=== PATIENT | female | born 1945 | race Asian ===

== ENCOUNTER 2017-07-24 13:23 | Emergency (ER) | payer MEDICARE, MEDICAID ==
[~2017-07-24] VITALS: Ht 149.9 cm; Wt 52.0 kg
[2017-07-24 14:26] LABS: HEMATOCRIT 43.4 % (34.6-47.8); HEMOGLOBIN 14.6 g/dL (11.7-16.4)
[2017-07-24] MEDS ORDERED: SODIUM CHLORIDE FLUSH 10ML SYR IVF ONE (14:30)
[2017-07-24 14:38] LABS: BLOOD UREA NITROGEN 26 mg/dL (7-18)
[2017-07-24 14:54] LABS: IS PT STATUS REG ER OR PRE ER? YES
[2017-07-24] MEDS ORDERED: ENALAPRILAT 1.25 MG/ML, 2ML ONE (14:56)
[2017-07-24] MEDS ORDERED: LABETALOL 5MG/ML, 20ML ONE (14:56)
[2017-07-24] MEDS ORDERED: LABETALOL 5MG/ML, 20ML IVPush ONE (15:00)
[2017-07-24] MEDS ORDERED: ENALAPRILAT 1.25 MG/ML, 2ML IV ONE (15:00)
[2017-07-24 16:37] VITALS: BP 166/68
== END 2017-07-24 17:10 | disposition home or self-care (01) ==
LOC: ED 16:30
DX: I10 Essential (primary) hypertension (principal); Z86.73 Personal history of transient ischemic attack (TIA), and cerebral infarction without residual deficits
CPT/HCPCS: 36415; 71010; 80048; 82040; 83880; 84484; 85025; 93005; 96374; 96375

== ENCOUNTER 2018-02-18 19:55 | Emergency (ER) | payer MEDICARE, MEDICAID ==
[~2018-02-18] VITALS: Ht 144.8 cm; Wt 51.1 kg
[2018-02-18] MEDS ORDERED: HYDR12.53 PO (20:31)
[2018-02-18 20:57] LABS: BASOPHILS # (AUTO) 0.08 x10^3/uL (0-0.1); BASOPHILS % (AUTO) 1 % (0-1); EOSINOPHILS # (AUTO) 0.34 x10^3/uL (0-0.4); EOSINOPHILS % (AUTO) 4 % (1-7); LYMPHOCYTES # (AUTO) 3.96 x10^3/uL (1-3.4); LYMPHOCYTES % (AUTO) 41 % (22-44); MD NO; MEAN CORPUSCULAR HEMOGLOBIN 29.3 pg (27.0-34.8); MEAN CORPUSCULAR HGB CONC 33.6 g/dL (32.4-35.8); MEAN PLATELET VOLUME 8.7 fL (7.4-10.4); MONOCYTES # (AUTO) 0.61 x10^3/uL (0.2-0.8); MONOCYTES % (AUTO) 6 % (2-9); NEUTROPHILS # (AUTO) 4.64 x10^3/uL (1.8-6.8); NEUTROPHILS % (AUTO) 48 % (42-75); PLATELET COUNT 284 x10^3/uL (130-400); RED BLOOD COUNT 4.43 x10^6/uL (3.82-5.3); RED CELL DISTRIBUTION WIDTH 13.4 % (9.6-15.2)
[2018-02-18 21:01] LABS: ALANINE AMINOTRANSFERASE 26 U/L (12-78); ALBUMIN 3.5 g/dL (3.4-5.0); ANION GAP 8 mmol/L (5-15); CALCIUM 9.5 mg/dL (8.5-10.1); CHLORIDE 103 mmol/L (98-107); CREATININE 1.03 mg/dL (0.55-1.02)
[2018-02-18 21:03] LABS: ALKALINE PHOSPHATASE 90 U/L (45-117); BILIRUBIN,TOTAL 0.3 mg/dL (0.2-1.0); TOTAL PROTEIN 8.4 g/dL (6.4-8.2)
[2018-02-18] MEDS ORDERED: LOSARTAN 50MG TABLET PO ONE (22:00)
[2018-02-18 22:28] VITALS: BP 235/115
== END 2018-02-18 22:30 | disposition home or self-care (01) ==
LOC: ED 22:00
DX: S93.491A Sprain of other ligament of right ankle, initial encounter (principal); L30.9 Dermatitis, unspecified; I10 Essential (primary) hypertension; X58.XXXA Exposure to other specified factors, initial encounter; Y93.89 Activity, other specified; Y92.89 Other specified places as the place of occurrence of the external cause; Y99.8 Other external cause status
CPT/HCPCS: 36415; 80053; 85025; 93005; 99285

== ENCOUNTER 2018-10-20 16:06 | Emergency (ER) | payer MEDICARE, MEDICAID ==
[~2018-10-20] VITALS: Ht 144.8 cm; Wt 50.8 kg
[~2018-10-20 16:06] MED LIST: HYDR12.517 PO
--- NOTE | 2018-10-20 16:32 | NUR ---
FROM LOBBY TO ROOM AT THIS TIME
--- NOTE | 2018-10-20 16:37 | NUR ---
FIRST CONTACT WITH PT. Pt states, "I am here because of skin rashes that I have had a week or a month. I have a red spon on my eyes (left eye) it is always itching me. I used an an anti-itch cream from the [email or web address] and it didn't help. Every time I walk I am having trouble breathing." NADN. PT DENIES CP. PT STATES SHE HAS "TROUBLE BREATHING WHEN I WALK". PT HAS UNLABORED RESPIRATIONS EQUAL BILATERALLY. ALL SAFETY MEASURES IN PLACE. PT CONNECTED TO ALL MONITORS. CALL LIGHT WITHIN REACH OF PT.
[2018-10-20 17:11] LABS: BASOPHILS # (AUTO) 0.07 x10^3/uL (0-0.1); BASOPHILS % (AUTO) 1 % (0-1); EOSINOPHILS # (AUTO) 0.42 x10^3/uL (0-0.4); EOSINOPHILS % (AUTO) 6 % (1-7); LYMPHOCYTES % (AUTO) 32 % (22-44); MD NO; MEAN CORPUSCULAR HEMOGLOBIN 30.7 pg (27.0-34.8); MEAN CORPUSCULAR HGB CONC 34.5 g/dL (32.4-35.8); MEAN PLATELET VOLUME 9.3 fL (7.4-10.4); MONOCYTES # (AUTO) 0.41 x10^3/uL (0.2-0.8); MONOCYTES % (AUTO) 6 % (2-9); NEUTROPHILS # (AUTO) 4.17 x10^3/uL (1.8-6.8); NEUTROPHILS % (AUTO) 56 % (42-75); PLATELET COUNT 213 x10^3/uL (130-400); RED BLOOD COUNT 4.55 x10^6/uL (3.82-5.3); RED CELL DISTRIBUTION WIDTH 13.3 % (9.6-15.2)
[2018-10-20 17:23] LABS: ALBUMIN 3.8 g/dL (3.4-5.0); ANION GAP 8 mmol/L (5-15); CALCIUM 8.7 mg/dL (8.5-10.1); CHLORIDE 105 mmol/L (98-107)
[2018-10-20 17:28] LABS: ALANINE AMINOTRANSFERASE 25 U/L (12-78); ALKALINE PHOSPHATASE 76 U/L (45-117); BILIRUBIN,TOTAL 0.5 mg/dL (0.2-1.0); CREATININE 1.92 mg/dL (0.55-1.02); TOTAL PROTEIN 7.9 g/dL (6.4-8.2); TROPONIN I < 0.015 ng/mL (0.000-0.045)
--- NOTE | 2018-10-20 17:31 | NUR ---
ED MD AWARE OF PT'S BLOOD PRESSURES. PT IS ASYMPTOMATIC.
[2018-10-20] MEDS ORDERED: LISINOPRIL 10 MG TABLET PO ONE (18:00)
[2018-10-20] MEDS ORDERED: LISINOPRIL 10 MG TABLET ONE (18:16)
--- NOTE | 2018-10-20 18:21 | NUR ---
PROVIDED PT MEDICATION PER EMAR.
[2018-10-20 19:01] VITALS: BP 181/100
--- NOTE | 2018-10-20 19:01 | NUR ---
PT DISCHARGED AND LEFT WITH ALL PERSONAL BELONGINGS.
== END 2018-10-20 19:06 | disposition home or self-care (01) ==
LOC: ED 18:50
DX: B35.4 Tinea corporis (principal); I10 Essential (primary) hypertension; R06.00 Dyspnea, unspecified
CPT/HCPCS: 36415; 71045; 80053; 83880; 84484; 85025; 93005; 99284

== ENCOUNTER 2018-11-02 14:26 | Emergency (ER) | payer MEDICARE, MEDICAID ==
[~2018-11-02] VITALS: Ht 152.4 cm; Wt 53.6 kg
[2018-11-02 14:35] VITALS: BP 218/102
[2018-11-02 15:22] LABS: ALBUMIN 3.6 g/dL (3.4-5.0); ANION GAP 8 mmol/L (5-15); CALCIUM 8.9 mg/dL (8.5-10.1); CHLORIDE 106 mmol/L (98-107)
[2018-11-02 15:25] LABS: ALANINE AMINOTRANSFERASE 23 U/L (12-78); ALKALINE PHOSPHATASE 73 U/L (45-117); BILIRUBIN,TOTAL 0.5 mg/dL (0.2-1.0); CREATININE 1.22 mg/dL (0.55-1.02); TOTAL PROTEIN 7.6 g/dL (6.4-8.2)
[2018-11-02] MEDS ORDERED: FLUCONAZOLE 100 MG TABLET ONE (16:00)
[2018-11-02] MEDS ORDERED: FLUCONAZOLE 100 MG TABLET PO ONE (16:00)
== END 2018-11-02 16:11 | disposition home or self-care (01) ==
LOC: ED 15:35
DX: L25.9 Unspecified contact dermatitis, unspecified cause (principal); I10 Essential (primary) hypertension; Z86.73 Personal history of transient ischemic attack (TIA), and cerebral infarction without residual deficits
CPT/HCPCS: 36415; 80053; 99283; Q0177

== ENCOUNTER 2019-12-11 16:48 | Inpatient (IN) | payer MEDICARE, MEDICAID ==
[~2019-12-11] VITALS: Ht 149.9 cm; Wt 48.0 kg
[2019-12-11] MEDS ORDERED: ENALAPRILAT 1.25 MG/ML, 2ML IV ONE (18:00)
[2019-12-11] MEDS ORDERED: ENALAPRILAT 1.25 MG/ML, 1ML ONE (18:12)
--- NOTE | 2019-12-11 18:24 | NUR ---
PT MEDICATED PER MAR
[2019-12-11 18:27] LABS: BASOPHILS # (AUTO) 0.06 x10^3/uL (0-0.1); BASOPHILS % (AUTO) 1 % (0-1); EOSINOPHILS # (AUTO) 0.18 x10^3/uL (0-0.4); EOSINOPHILS % (AUTO) 2 % (1-7); LYMPHOCYTES # (AUTO) 2.91 x10^3/uL (1-3.4); LYMPHOCYTES % (AUTO) 30 % (22-44); MD NO; MEAN CORPUSCULAR HEMOGLOBIN 29.7 pg (27.0-34.8); MEAN CORPUSCULAR VOLUME 90.1 fL (80-100); MEAN PLATELET VOLUME 8.4 fL (7.4-10.4); MONOCYTES # (AUTO) 0.48 x10^3/uL (0.2-0.8); MONOCYTES % (AUTO) 5 % (2-9); NEUTROPHILS # (AUTO) 6.08 x10^3/uL (1.8-6.8); NEUTROPHILS % (AUTO) 63 % (42-75); PLATELET COUNT 225 x10^3/uL (130-400); RED BLOOD COUNT 4.41 x10^6/uL (3.82-5.3); RED CELL DISTRIBUTION WIDTH 13.3 % (9.6-15.2)
[2019-12-11 18:36] LABS: ALBUMIN 3.8 g/dL (3.4-5.0); ANION GAP 6 mmol/L (5-15); CALCIUM 8.9 mg/dL (8.5-10.1); CHLORIDE 105 mmol/L (98-107)
[2019-12-11 18:41] LABS: CREATININE 0.95 mg/dL (0.55-1.02); TROPONIN I < 0.015 ng/mL (0.000-0.045)
[2019-12-11] MEDS ORDERED: hydrALAzine 20 MG/ML, 1ML ONE (19:11)
--- NOTE | 2019-12-11 19:17 | NUR ---
PT CAME IN WITH HIGH BP. 2 EKG PEFORMED. PT IS NONCOMPLIENT WITH BP MEDS. 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 BLANKET AND SOCKS PROVIDED. PT MEDICATED PER MAR
--- NOTE | 2019-12-11 19:28 | NUR ---
PT RESTING IN [facility]. AWAITING US RESULTS. NO NEEDS AT THIS TIME.
[2019-12-11] MEDS ORDERED: hydrALAzine 20 MG/ML, 1ML IV ONE (19:30)
[2019-12-11] MEDS ORDERED: LORazepam 1MG TABLET ONE (19:55)
[2019-12-11] MEDS ORDERED: LORazepam 1MG TABLET PO ONE (20:00)
--- NOTE | 2019-12-11 20:30 | NUR ---
LATE ENTRY. HOSPITALIST BEDSIDE.
--- NOTE | 2019-12-11 21:06 | NUR ---
JEMAL DANGELO PROVIDED FROM [employer]
[2019-12-11 21:57] VITALS: BP 163/72
[2019-12-11] MEDS ORDERED: ACETAMINOPHEN 325 MG TABLET PO PRN (22:00)
[2019-12-11] MEDS ORDERED: LORazepam 1MG TABLET PO PRN (22:00)
[2019-12-11] MEDS ORDERED: LABETALOL 5MG/ML, 20ML IVPush PRN (22:00)
[2019-12-11] MEDS ORDERED: ONDANSETRON 2MG/ML, 2ML IVPush PRN (22:00)
[2019-12-11] MEDS ORDERED: PROMETHAZINE 25 MG/ML, 1ML IM PRN (22:00)
[2019-12-11] MEDS: LISINOPRIL 5 MG TABLET PO SCH (22:19)
[2019-12-12 01:33] VITALS: BP 151/71
[2019-12-12 06:32] VITALS: BP 166/66
[2019-12-12 07:14] LABS: BASOPHILS # (AUTO) 0.01 x10^3/uL (0-0.1); BASOPHILS % (AUTO) 0 % (0-1); EOSINOPHILS # (AUTO) 0.04 x10^3/uL (0-0.4); EOSINOPHILS % (AUTO) 0 % (1-7); LYMPHOCYTES # (AUTO) 1.88 x10^3/uL (1-3.4); LYMPHOCYTES % (AUTO) 18 % (22-44); MD NO; MEAN CORPUSCULAR HEMOGLOBIN 30.4 pg (27.0-34.8); MEAN CORPUSCULAR HGB CONC 33.2 g/dL (32.4-35.8); MEAN CORPUSCULAR VOLUME 91.5 fL (80-100); MEAN PLATELET VOLUME 8.9 fL (7.4-10.4); MONOCYTES # (AUTO) 0.46 x10^3/uL (0.2-0.8); MONOCYTES % (AUTO) 4 % (2-9); NEUTROPHILS # (AUTO) 8.13 x10^3/uL (1.8-6.8); NEUTROPHILS % (AUTO) 77 % (42-75); PLATELET COUNT 229 x10^3/uL (130-400); RED BLOOD COUNT 4.31 x10^6/uL (3.82-5.3); RED CELL DISTRIBUTION WIDTH 13.3 % (9.6-15.2)
[2019-12-12 07:23] LABS: ANION GAP 10 mmol/L (5-15); CALCIUM 8.8 mg/dL (8.5-10.1); CHLORIDE 107 mmol/L (98-107)
[2019-12-12 07:28] LABS: CHOL/HDL RATIO 2.9; CHOLESTEROL, TOTAL 204 mg/dL (140-239); CREATININE 1.18 mg/dL (0.55-1.02); HDL CHOL % 35 % (28-40); HDL CHOLESTEROL (DIRECT) 71 mg/dL (40-60); LDL CHOLESTEROL,CALCULATED 112 mg/dL (54-169); LDL/HDL RATIO 1.6 (0.5-3.0); TRIGLYCERIDES 103 mg/dL (50-200); VLDL CHOLESTEROL 21 mg/dL (0-25)
[2019-12-12] MEDS: LISINOPRIL 5 MG TABLET PO SCH (08:14)
[2019-12-12] MEDS ORDERED: CARVEDILOL 6.25 MG TABLET ONE (09:01)
[2019-12-12] MEDS: CARVEDILOL 6.25 MG TABLET PO SCH ×2 (09:11→16:39)
[2019-12-12] MEDS ORDERED: SIMVASTATIN 20 MG TABLET PO SCH ×2 (09:30→21:00)
[2019-12-12 12:31] VITALS: BP 156/68
[2019-12-12 16:40] VITALS: BP 199/82
[2019-12-12 18:59] VITALS: BP 166/66
[2019-12-13 00:22] VITALS: BP 168/83
[2019-12-13 05:57] LABS: ALBUMIN 3.2 g/dL (3.4-5.0); ANION GAP 9 mmol/L (5-15); CALCIUM 8.4 mg/dL (8.5-10.1); CHLORIDE 108 mmol/L (98-107)
[2019-12-13 05:59] LABS: CREATININE 1.24 mg/dL (0.55-1.02)
[2019-12-13 06:00] LABS: ALANINE AMINOTRANSFERASE 25 U/L (12-78); ALKALINE PHOSPHATASE 57 U/L (45-117); BILIRUBIN,TOTAL 0.7 mg/dL (0.2-1.0); TOTAL PROTEIN 7.1 g/dL (6.4-8.2)
[2019-12-13 06:12] LABS: BASOPHILS # (AUTO) 0.05 x10^3/uL (0-0.1); BASOPHILS % (AUTO) 1 % (0-1); EOSINOPHILS # (AUTO) 0.21 x10^3/uL (0-0.4); EOSINOPHILS % (AUTO) 3 % (1-7); LYMPHOCYTES # (AUTO) 2.74 x10^3/uL (1-3.4); LYMPHOCYTES % (AUTO) 32 % (22-44); MD NO; MEAN CORPUSCULAR HEMOGLOBIN 29.9 pg (27.0-34.8); MEAN CORPUSCULAR HGB CONC 33.2 g/dL (32.4-35.8); MEAN CORPUSCULAR VOLUME 90.2 fL (80-100); MEAN PLATELET VOLUME 8.8 fL (7.4-10.4); MONOCYTES # (AUTO) 0.44 x10^3/uL (0.2-0.8); MONOCYTES % (AUTO) 5 % (2-9); NEUTROPHILS # (AUTO) 5.01 x10^3/uL (1.8-6.8); NEUTROPHILS % (AUTO) 59 % (42-75); PLATELET COUNT 218 x10^3/uL (130-400); RED BLOOD COUNT 4.26 x10^6/uL (3.82-5.3); RED CELL DISTRIBUTION WIDTH 13.5 % (9.6-15.2)
[2019-12-13 06:30] VITALS: BP 132/62
[2019-12-13] MEDS: CARVEDILOL 6.25 MG TABLET PO SCH (06:32)
[2019-12-13] MEDS ORDERED: CARV6.2512 PO (08:43)
[2019-12-13] MEDS ORDERED: LISI5TAB7 PO (08:43)
[2019-12-13] MEDS ORDERED: SIMV20TA19 PO (08:43)
[2019-12-13] MEDS: LISINOPRIL 5 MG TABLET PO SCH (09:04)
[2019-12-13 12:29] VITALS: BP 159/63
== END 2019-12-13 14:12 | disposition home or self-care (01) | DRG 305 ==
LOC: ED 19:11 → EDIP 21:29 → 4EST 21:42 → DCLOUNGE 12-13 14:05
PROVIDERS: ADMIT Family Medicine; ATTEND Internal Medicine
DX: I16.1 Hypertensive emergency (principal); I11.9 Hypertensive heart disease without heart failure; E78.5 Hyperlipidemia, unspecified; I25.10 Atherosclerotic heart disease of native coronary artery without angina pectoris; Z86.73 Personal history of transient ischemic attack (TIA), and cerebral infarction without residual deficits; Z91.14 Patient's other noncompliance with medication regimen; Z91.19 Patient's noncompliance with other medical treatment and regimen
CPT/HCPCS: 36415; 71045; 80048; 80053; 80061; 82040; 82607; 83036; 83735; 83880; 84100; 84443; 84484; 85025; 93005; 93306; 96374; G0378; J0360